=== PATIENT | female | born 1965 | race Two or more races ===

== ENCOUNTER 2019-09-12 11:03 | Emergency (ER) | payer OTHER ==
[2019-09-12 11:10] VITALS: BP 156/87; PULSE 94; TEMP 98; BMI 34.7
[2019-09-12] MEDS ORDERED: SODIUM CHLORIDE 1,000 ML IV STA (12:26)
[2019-09-12] MEDS ORDERED: ONDANSETRON 4 MG/2 ML VIAL IVPUSH ONE (12:26)
[2019-09-12] MEDS ORDERED: ACETAMINOPHEN 500 MG TABLET (FP) PO ONE (12:26)
[2019-09-12] MEDS ORDERED: METOCLOPRAMIDE HCL INJECTION 10 MG/2 ML VIAL IVPUSH ONE (12:32)
[2019-09-12] MEDS ORDERED: ACETAMINOPHEN 1000 MG/100 ML VIAL (NON FORMULARY) IVPB ONE (12:32)
[2019-09-12] MEDS ORDERED: METOCLOPRAMIDE HCL INJECTION 10 MG/2 ML VIAL ONE (12:59)
[2019-09-12] MEDS ORDERED: ACETAMINOPHEN INJECTION 100 ML IVPB ONE (13:00)
[2019-09-12 14:04] LABS: BASO % 0.7 % (0-2.0); EOS % 0.3 % (0-4.5); HEMATOCRIT 36.4 % (32.4-45.2); HEMOGLOBIN 11.7 GM/dL (10.7-15.3); LYMPH % 18.9 % (8-40); MCH 24.3 pg (25.7-33.7); MCHC 32.1 g/dl (32.0-36.0); MEAN CELL VOLUME 75.8 fl (80-96); MEAN PLT VOLUME 8.2 fl (7.5-11.1); MONO % 5.5 % (3.8-10.2); NEUT % 74.6 % (42.8-82.8); PLATELET COUNT 500 K/MM3 (134-434); RDW 18.6 % (11.6-15.6); WHITE BLOOD COUNT 10.1 K/mm3 (4.0-10.0)
[2019-09-12 14:46] LABS: ALBUMIN 3.5 g/dl (3.4-5.0); ALK PHOS 94 U/L (45-117); ANION GAP 10 MMOL/L (8-16); BILIRUBIN,TOTAL 0.2 mg/dL (0.2-1); BLOOD UREA NITROGEN 6.6 mg/dL (7-18); CHLORIDE 104 mmol/L (98-107); CO2 25 mmol/L (21-32); CREATININE 0.7 mg/dL (0.55-1.3); GLUCOSE,RANDOM 117 mg/dL (74-106); MAGNESIUM 1.9 mg/dL (1.8-2.4); POTASSIUM 4.3 mmol/L (3.5-5.1); SGOT/AST 39 U/L (15-37); SGPT/ALT 47 U/L (13-61); SODIUM 138 mmol/L (136-145); TOT PROT 7.8 g/dl (6.4-8.2)
== END 2019-09-12 15:07 | disposition home or self-care (01) ==
LOC: JER 11:03
PROC: 3E033NZ Introduction of Analgesics, Hypnotics, Sedatives into Peripheral Vein, Percutaneous Approach (ICD-10-PCS; principal; 2019-09-12)
PROC: 3E033GC Introduction of Other Therapeutic Substance into Peripheral Vein, Percutaneous Approach (ICD-10-PCS; 2019-09-12)
PROC: 3E0337Z Introduction of Electrolytic and Water Balance Substance into Peripheral Vein, Percutaneous Approach (ICD-10-PCS; 2019-09-12)
DX: F41.9 Anxiety disorder, unspecified (principal); R07.9 Chest pain, unspecified
CPT/HCPCS: 36415; 71045-TC-FY; 80053; 82550; 83735; 84439; 84443; 84484; 85025; 93005; 93010; 99285-25; J0131

== ENCOUNTER 2023-10-14 22:15 | Emergency (ER) | payer OTHER ==
[2023-10-14 22:22] VITALS: BP 162/92; PULSE 82; RESP 17; TEMP 97.5; BMI 29.2
[2023-10-14] MEDS ORDERED: ACETAMINOPHEN 325 MG TABLET (FP) ONE (23:57)
[2023-10-14] MEDS ORDERED: KETOROLAC TROMETHAMINE 15 MG/ML VIAL ONE (23:58)
[2023-10-14] MEDS ORDERED: LIDOCAINE 4% PATCH TP ONE (23:58)
[2023-10-15] MEDS: KETOROLAC TROMETHAMINE 15 MG/ML VIAL IM ONE (00:04)
[2023-10-15] MEDS: LIDOCAINE 5% TOPICAL PATCH TP ONE (00:05)
[2023-10-15] MEDS: ACETAMINOPHEN 325 MG TABLET (FP) PO ONE (00:05)
== END 2023-10-15 01:37 | disposition home or self-care (01) ==
LOC: JER 22:15 → JERFT 22:15 → JER 10-15 01:37
PROC: 3E0233Z Introduction of Anti-inflammatory into Muscle, Percutaneous Approach (ICD-10-PCS; principal; 2023-10-14)
DX: M54.50 Low back pain, unspecified (principal); M54.6 Pain in thoracic spine
CPT/HCPCS: 81003; 87086; 99284-25